=== PATIENT | female | born 1970 | race Caucasian/White ===

== ENCOUNTER 2025-06-22 16:54 | Outpatient (CLI) | payer OTHER, SELFPAY ==
[2025-06-22 19:46] LABS: Hematocrit 45.6 % (37.0-47.0); Hemoglobin 15.4 g/dL (12.2-16.2); Immature Granulocytes % 0.3 %; Mean Corpuscular HGB Conc 33.8 g/dL (31.8-35.4); Mean Corpuscular Hemoglobin 31.1 pg (27.0-31.2); Mean Corpuscular Volume 92.1 fl (81-99); Nucleated Red Blood Cells % 0 %; Platelet Count 362 K/mm3 (142-424); Red Blood Count 4.95 M/mm3 (4.20-5.40); Red Cell Distribution Width-SD 50.1 fL; White Blood Count 11.6 K/mm3 (4.8-10.8)
[2025-06-22 20:01] LABS: Alanine Aminotransferase 23 U/L (12-78); Albumin Level 4.3 g/dl (3.5-5.0); Albumin/Globulin Ratio 1.4 (1.1-1.8); Alkaline Phosphatase 130 U/L (38-126); Anion Gap 9.4 mEq/L (5-15); Aspartate Amino Transferase 28 U/L (14-36); Bilirubin,Total 0.7 mg/dl (0.2-1.3); Blood Urea Nitrogen 9 mg/dl (7-17); Calcium 9.6 mg/dl (8.4-10.2); Carbon Dioxide 28 mmol/L (22.0-30.0); Chloride 99 mmol/L (98-107); Cholesterol 158 mg/dl (140-200); Creatinine,Serum 0.60 mg/dl (0.52-1.04); Estimated Glomerular Filt Rate 104 ml/min (>60); GFR (African American) 126 ML/MIN (>60); Globulin 3.1 g/dL (1.3-3.2); Glucose 105 mg/dl (74-100); HDL Cholesterol 68 mg/dl (40-60); Potassium 4.4 mmoL/L (3.5-5.1); Sodium 132 mmol/L (136-145); Total Protein,Serum 7.4 g/dl (6.3-8.2); Triglycerides 109 mg/dl (30-150)
--- OUTSIDE RECORDS SUMMARY | 2025-06-23 16:56 | XMS_ITS | Clinical Summary ---
Author Organization [facility] Address [address] [place] [address] Phone Care Team Providers Care Precision Assembler Name Role Phone Unavailable Primary Care Provider Unavailabl e Allergies Active Allergy Reactions Criticality Noted Date Comments Tizanidine 07/31/2011 Nightmares Medications meloxicam (MOBIC) 15 mg Oral TabletIndications :Low back pain radiating to right leg,DDD (degenerative disc disease), lumbar Take 1 Tab by mouth daily. 15 Tab 2 5 Active Additional Information Patient not taking.Reason: Therapy Completed, Reported on 05/26/2024 azelastine (ASTELIN) 137 mcg (0.1 %) Nasl Aerosol, SprayIndications: Acute bacterial sinusitis 1 [place] by Each Nare route 2 times daily. Use in each nostril as directed 30 mL 2 7 Active Additional Information Patient not taking.Reason: Therapy Completed, Reported on 05/26/2024 Melatonin 5 mg Oral CapsuleIndication s:Primary insomnia Take 5 Caps by mouth nightly as needed. 30 Cap 3 7 Active Additional Information Patient not taking.Reason: Therapy Completed, Reported on 05/26/2024 Varenicline (CHANTIX) 0.5 mg (11)- 1 mg (42) Oral Tablets, Dose PackIndications:C urrent smoker Use schedule 53 Tab 7 Active Additional Information Patient not taking.Reason: Therapy Completed, Reported on 05/26/2024 LORazepam (ATIVAN) 1 mg Oral TabletIndications :HILARY (generalized anxiety disorder) TAKE ONE TABLET BY MOUTH TWICE DAILY NEEDED FOR ANXIETY ATTACKS 6 Tab 7 Active lidocaine (LIDODERM) 5 % Top Adhesive Patch, MedicatedIndicati ons:Low back pain radiating to right leg USE ONE PATCH EXTERNALLY ONTO THE SKIN EVERY 12 HOURS 60 Patch 8 Active Additional Information Patient not taking.Reason: Therapy Completed, Reported on 05/26/2024 albuterol (PROAIR HFA) 90 mcg/actuation Inhl HFA Aerosol InhalerIndication s:Tobacco abuse Inhale 2 Puffs into the lungs every 6 hours as needed for Wheezing. 1 Inhaler 8 Active Additional Information Patient not taking.Reason: Pt electing to not take the medication, Reported on 05/26/2024 HYDROcodone-aceta minophen (NORCO) 10-325 mg Oral TabletIndications :Lumbar spondylosis,Low back pain radiating to right leg,DDD (degenerative disc disease), lumbar,Chronic pain syndrome,Myofasci al pain,Greater trochanteric bursitis of right hip,Radiculopathy of lumbar region,Sacroiliit is Take 1 Tablet by mouth every 6 hours as needed for Chronic Pain (G89.29). 120 Tablet 3 Active tiZANidine (ZANAFLEX) 2 mg Oral Capsule Take 1 Capsule by mouth 3 times daily as needed for Muscle spasms. 90 Capsule 5 3 Active Additional Information Patient not taking.Reason: Therapy Completed, Reported on 05/26/2024 HYDROcodone-aceta minophen (NORCO) 10-325 mg Oral TabletIndications :Sacroiliitis,Lum bar spondylosis,Chron ic pain syndrome,DDD (degenerative disc disease), lumbar,Myofascial pain,Low back pain radiating to right leg,Radiculopathy of lumbar region,Greater trochanteric bursitis of right hip Take 1 Tablet by mouth every 6 hours as needed for Chronic Pain (G89.29). 120 Tablet 3 Active Additional Information Patient not taking.Reason: Therapy Completed, Reported on 05/26/2024 HYDROcodone-aceta minophen (NORCO) 10-325 mg Oral TabletIndications :Sacroiliitis,Lum bar spondylosis,Chron ic pain syndrome,DDD (degenerative disc disease), lumbar,Myofascial pain,Low back pain radiating to right leg,Radiculopathy of lumbar region,Greater trochanteric bursitis of right hip Take 1 Tablet by mouth every 6 hours as needed for Chronic Pain (G89.29). 120 Tablet 3 Active Additional Information Patient not taking.Reason: Therapy Completed, Reported on 05/26/2024 HYDROcodone-aceta minophen (NORCO) 10-325 mg Oral TabletIndications :Sacroiliitis,Lum bar spondylosis,Chron ic pain syndrome,DDD (degenerative disc disease), lumbar,Myofascial pain,Low back pain radiating to right leg,Radiculopathy of lumbar region,Greater trochanteric bursitis of right hip Take 1 Tablet by mouth every 6 hours as needed for Chronic Pain (G89.29). 120 Tablet 3 Active Additional Information Patient not taking.Reason: Therapy Completed, Reported on 05/26/2024 clonazePAM (KLONOPIN) 1 mg Oral Tablet TAKE ONE (1) TABLET EVERY DAY BY ORAL ROUTE AT BEDTIME FOR 14 DAYS. Active Active Problems Patient Care Coordination No te Formatting of this note migh t be different from the original. 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 Current smoker 03/31/2016 Low back pain radiating to right leg 04/22/2015 Shoulder pain Back pain DDD (degenerative disc disease), lumbar COPD, mild Needs smoking cessation education Pain medication agreement Surgical History Surgery Date Site/Laterality Comments ELBOW SURGERY SECTION ,1988,1993,1998 Medical History Medical History Date Comments Chronic airway obstruction, not elsewhere classi fied Social History Tobacco Use Types Packs/Day Years Used Date Smoking Tobacco: Every Day Cigarettes Smokeless Tobacco: Never Tobacco Cessation:Ready to Q uit: No; Counseling Given: No Comments:down to 3 cigs a day Alcohol Use Standard Drinks/Week Comments No 0 (1 standard drink = 0.6 oz pur e alcohol) Comments No Sex and Gender Information Value Date Recorded Sex Assigned at Not on file Legal Sex Female 2:06 AM EDT Gender Identity Not on file Sexual Orientation Not on file Last Filed Vital Signs Vital Sign Reading Time Taken Comments Blood Pressure 104/68 04/17/2024 11:10 AM EDT Pulse 82 04/17/2024 11:10 AM EDT Temperature 36.6 C (97.8 F) 04/17/2024 11:10 AM EDT Respiratory Rate 14 04/17/2024 11:10 AM EDT Oxygen Saturation 92% 04/17/2024 11:10 AM EDT Inhaled Oxygen Concentration - - Weight 73.5 kg (162 lb 0.1 oz) 04/17/2024 9:03 A M EDT Height 180.3 cm (5' 11 ) 04/17/2024 9:03 AM EDT Body Mass Index 22.6 04/17/2024 9:03 AM EDT Plan of Treatment Health Maintenance Due Date Last Done Comments Annual Wellness Exam 1972 DTaP/TDaP/Td (1 - Tdap) 1988 Hepatitis B Vaccine (1 of 3 - 19+ 3-dose series) 1988 Pneumococcal Vaccine 50+ (1 of 2 - PCV) 1988 HPV/Pap Cotest 1999 Breast Cancer Screening 08/10/2011 08/10/20 09, 08/10/2009 Cervical Cancer Screening 06/16/2012 Pap Smear 06/16/2012 06/16/2009 Cologuard 2014 Colon Cancer Screening 2014 Colonoscopy 2014 FIT 2014 Sigmoidoscopy 2014 Virtual Colonography 2014 Zoster (1 of 2) 2019 COVID-19 Vaccine ( - 2024-2 6 season) 2025 Influenza Vaccine (#1) 2025 6 (Declined), 07/21/2015 (Declined), 08/14/2014 (Declined) Meningococcal B Vaccine Aged Out No l onger eligible based on patient's age to complete this topic Goals Goal Patient Goal Type Associated Problems Recent Progress Patient-Stated? Author Blood Pressure < 140/90 Blood Pressure 104/68(2023 11:10 AM EDT) No Eddy Weaver MD Maintain a healthy diet, exercise regularly and maintain an ideal body weight General No Perez, Kiki, RMA Stay Tobacco Free Lifestyle No Perez, Kiki, RMA Procedures Procedure Name Priority Date/Time Associated Diagnosis Comments MM DIG DIAG THIEN PANEL W/CAD Routine 08/10/2009 9:00 AM EST HM PAP SMEAR Routine 06/16/2009 from Last 3 Months or Most Recently Relevant to Health Maintenance Results * MM DIG DIAG THIEN PANEL W/CAD (08/10/2009 9:00 AM EST) Anatomical Region Laterality Modality Other 08/10/2009 9:00 AM EST Narrative 08/10/2009 10:40 AM EST Procedure-MM DIG DIAG THIEN PANEL W/CAD MM DIGITAL DIAG BILAT PANEL Bilateral CC and MLO view(s) were taken. No prior studies available for comparison. BILATERAL DIGITAL DIAGNOSTIC MAMMOGRAM WITH CAD 08/10/09- 1. Routine craniocaudal and oblique views were obtained of both breasts. Coned down compression magnification views in the craniocaudal and oblique projection and a true lateral film were obtained of the left breast. No prior examinations were available for comparison. 2. The breasts are heterogeneously dense. This limits the sensitivity of the examination. 3. No masses, architectural distortion or suspicious calcifications in the right breast. 4. In the upper outer quadrant of the left breast in the region of the palpable abnormality normal breast tissue is identified. 5. There is an oval 1 cm density present at the 6 o'clock position of the left breast in the mid posterior portion. Portions of its margins are smooth and sharp. Other portions are ill-defined. No definite spiculation, architectural distortion or significant calcifications. IMPRESSION- Incomplete-need additional imaging evaluation ([id number]) Oval density 6 o'clock position left breast. No mammographic abnormality at site of palpable mass upper outer quadrant left breast. RECOMMENDATION- Ultrasound of the left breast. This ultrasound examination was performed on 08/10/09 and will be reported separately. * The patient with a palpable abnormality, unexplained by breast imaging, should be managed on clinical basis by the attending physician. * Breast imaging has a false negative rate of 15%. * The patient was notified by mail of the results of this examination. Power Digger Operator- DANISH Nunes Physician- RONEN KIMBALL MD Released Date Time- 08/10/09 1149 Procedure Note Ronen Kimball R - 10/22/2009 Procedure-MM DIG DIAG THIEN PANEL W/CAD MM DIGITAL DIAG BILAT PANEL Bilateral CC and MLO view(s) were taken. No prior studies available for comparison. BILATERAL DIGITAL DIAGNOSTIC MAMMOGRAM WITH CAD 08/10/09- 1. Routine craniocaudal and oblique views were obtained of both breasts. Coned down compression magnification views in the craniocaudal and oblique projection and a true lateral film were obtained of the left breast. No prior examinations were available for comparison. 2. The breasts are heterogeneously dense. This limits the sensitivity of the examination. 3. No masses, architectural distortion or suspicious calcifications in the right breast. 4. In the upper outer quadrant of the left breast in the region of the palpable abnormality normal breast tissue is identified. 5. There is an oval 1 cm density present at the 6 o'clock position of the left breast in the mid posterior portion. Portions of its margins are smooth and sharp. Other portions are ill-defined. No definite spiculation, architectural distortion or significant calcifications. IMPRESSION- Incomplete-need additional imaging evaluation ([id number]) Oval density 6 o'clock position left breast. No mammographic abnormality at site of palpable mass upper outer quadrant left breast. RECOMMENDATION- Ultrasound of the left breast. This ultrasound examination was performed on 08/10/09 and will be reported separately. * The patient with a palpable abnormality, unexplained by breast imaging, should be managed on clinical basis by the attending physician. * Breast imaging has a false negative rate of 15%. * The patient was notified by mail of the results of this examination. Power Digger Operator- DANISH Nunes Physician- RONEN KIMBALL MD Released Date Time- 08/10/09 1149 Eddy Weaver MD [facility] STAR RAD HISTORICAL Fin al Result * HM PAP SMEAR (06/16/2009) Historical Provider HEALTH MAINTENANCE Final Res ult from Last 3 Months or Most Recently Relevant to Health Maintenance Insurance [facility] [employer] ACCESS PLUS
== END 2025-06-22 23:59 | disposition home or self-care (01) ==
LOC: LAB.DROPOF 06-23 16:55
PROVIDERS: PCP Family Medicine; Visit Provider Family Medicine
DX: M62.838 Other muscle spasm (principal); Z13.6 Encounter for screening for cardiovascular disorders
CPT/HCPCS: 80053; 80061; 85025